=== PATIENT | female | born 1960 | race Caucasian/White ===

== ENCOUNTER 2019-01-16 00:29 | Outpatient (CLI) | payer BC, SELFPAY ==
--- NOTE | 2019-01-16 13:05 | DI.MAMMO_ITS ---
SYMPTOM/DIAGNOSIS: SCREENING, Z12.31, S/P BILAT BREAST AUGMENTATION MAMMOGRAMS: Mammograms were interpreted according to the usual protocol including computer analysis with CAD system, tomosynthesis and C view imaging. Comparison is made with prior examinations. Patient has bilateral breast implants which appear stable. Breast density, Category C. No suspicious microcalcifications are seen. There is a question of a new asymmetric density in the upper inner quadrant of the left breast. Spot compression views are requested. Ultrasound may be indicated at that time. IMPRESSION: Additional views of the left breast as described above, Category 0. MQSA ASSESSMENT OF FINDINGS: Incomplete: Needs additional imaging evaluation. Category 0. Patient will receive a letter notifying them of these results. Bi-RADS category C. The breasts are heterogeneously dense, which may obscure small masses.
== END 2019-01-16 00:49 ==
PROVIDERS: PCP Legal Medicine; Visit Provider Legal Medicine
DX: Z12.31 Encounter for screening mammogram for malignant neoplasm of breast (principal); R92.8 Other abnormal and inconclusive findings on diagnostic imaging of breast; Z98.82 Breast implant status
CPT/HCPCS: 77063; 77067

== ENCOUNTER 2019-01-23 01:12 | Outpatient (CLI) | payer BC, SELFPAY ==
--- NOTE | 2019-01-23 14:30 | DI.COMBO_ITS ---
SYMPTOMS/DIAGNOSIS: F/U ABNORMAL MAMMO, ? NEW AREA OF ASYMMETRIC DENSITY, UPPER INNER QUADRANT, LEFT BREAST ADDITIONAL MAMMOGRAPHIC VIEWS, LEFT BREAST, AND LEFT BREAST ULTRASOUND: Additional images are interpreted according to the usual protocol including tomosynthesis and 2D imaging. Additional mammographic views of the left breast and a left breast ultrasound were interpreted in conjunction. These examinations were obtained to evaluate a questionable area of asymmetric density of the left breast seen on recent mammogram. Additional mammographic views fail to show a definite mass, but there is some persistent asymmetry of radiodensity at this site. Breast ultrasound shows no evidence of a mass or cyst. CONCLUSION: No specific evidence of malignancy at this time. Follow-up unilateral left breast mammogram recommended in six months. Category 3, breast density category B. MQSA ASSESSMENT OF FINDINGS: Probably benign. Six month follow-up recommended. Category 3. Patient will receive a letter notifying them of these results. BI-RADS category B. There are scattered areas of fibroglandular density.
== END 2019-01-23 01:32 ==
PROVIDERS: PCP Legal Medicine; Visit Provider Legal Medicine
DX: Z12.31 Encounter for screening mammogram for malignant neoplasm of breast (principal); R92.8 Other abnormal and inconclusive findings on diagnostic imaging of breast; N60.82 Other benign mammary dysplasias of left breast
CPT/HCPCS: 76642; 77063; 77067

== ENCOUNTER 2019-07-24 01:25 | Outpatient (CLI) | payer BC, SELFPAY ==
--- NOTE | 2019-07-24 14:50 | DI.MAMMO_ITS ---
EXAM: MG MAMMO DIAGNOSTIC UNI CLINICAL HISTORY: DIAGNOSTIC, ABNL MAMMO, 6 MO F/U COMPARISON: 2009 through January,. FINDINGS: This is a 6-month followup for questioned area of asymmetric density. Implant-displaced CC and MLO v iews were performed. The breast is composed of heterogeneously dense fibroglandular tissue, breast d ensity category C. The previously questioned area of nodularity is not seen on the current exam. No new masses or suspicious microcalcifications are seen. IMPRESSION: Category 1, negative mammogram. Bilateral screening to be resumed in 6 months. BI-RADS Cat 1 - Negative Breast Density - Category C - Heterogeneously dense
== END 2019-07-24 01:45 ==
PROVIDERS: PCP Legal Medicine; Visit Provider Legal Medicine
DX: Z12.31 Encounter for screening mammogram for malignant neoplasm of breast (principal); R92.8 Other abnormal and inconclusive findings on diagnostic imaging of breast; N64.59 Other signs and symptoms in breast
CPT/HCPCS: 77061; 77065; G0279

== ENCOUNTER 2020-08-13 01:30 | Outpatient (CLI) | payer BC, SELFPAY ==
--- NOTE | 2020-08-13 12:30 | DI.MAMMO_ITS ---
EXAM: MG MAMMO SCREENING 60 MIN DUR CLINICAL HISTORY: SCREENING, Z12.31, IMPLANTS. TECHNIQUE: Bilateral full field digital CC and MLO mammographic images with and without implant disp lacement were obtained with 3D tomosynthesis and utilizing computer aided detection (CAD). COMPARISON: 2010 through 2018 FINDINGS: Bilateral full field digital CC and MLO mammographic images with and without implant displacement wer e obtained with 3D tomosynthesis and utilizing computer aided detection (CAD). Masses/Architectural Distortion: None seen. Microcalcifications: No suspicious pleomorphic-type microcalcifications are seen. Skin thickening/Nipple Retraction: None. Implants: There are bilateral saline implants which appear intact. Impression: 1. No significant interval change with no specific features of malignancy noted. 2. Unless there is more urgent need, screening mammography is recommended, as per [employer] guidelines. BI-RADS Category 1 - Negative Breast Density - Category C - Heterogeneously dense A negative radiographic report should not delay biopsy if a dominant or clinically suspicious mass is present. Up to ten percent of cancers are not identified on mammography. A negative report may reinforce clinical impression. Adenosis and dense breasts may obscure an underlying neoplasm. False positive reports average 6 to 10%. Patient will receive a letter notifying them of these results.
== END 2020-08-13 01:50 ==
PROVIDERS: PCP Legal Medicine; Visit Provider Legal Medicine
DX: Z12.31 Encounter for screening mammogram for malignant neoplasm of breast (principal); Z98.82 Breast implant status
CPT/HCPCS: 77063; 77067

== ENCOUNTER 2020-09-02 14:42 | Outpatient (REF) | payer BC, SELFPAY ==
--- NOTE | 2020-09-02 13:40 | CER_PTH ---
PATIENT: Dario Liu LOC: [facility] U#:[id number] AGE/SX: 59/F ROOM: RE09/02/[address]: Anastasia Dwyer DO : 1960 BED: DIS: 09/02/2020 SPEC #: [id number] RECD: 09/02/20 17:39 STATUS: ALEXSANDRA REQ #: [id number] MOSES: 09/02/20 13:[address]: Anastasia Dwyer DEPT: Surgical Specimen RECD BY: Sally Colvin ENTERED: 09/02/20 17:40 SP TYPE: CER OTHR DR: Britni Ortega Tissues: 1 - CERVICAL BIOPSY 2 - ENDOCERVICAL BX/CURRETTE Procedures: GROSS AND MICRO LEVEL 4 Comments: [id number]
== END 2020-09-02 15:02 ==
LOC: LBN 14:42
PROVIDERS: PCP Legal Medicine; Visit Provider Obstetrics & Gynecology
DX: N88.8 Other specified noninflammatory disorders of cervix uteri (principal); R87.611 Atypical squamous cells cannot exclude high grade squamous intraepithelial lesion on cytologic smear of cervix (ASC-H)
CPT/HCPCS: 88305

== ENCOUNTER 2022-09-29 04:04 | Outpatient (CLI) | payer BC, SELFPAY ==
[2022-09-29] MEDS: Inhaler, Assist Device 1 EACH MC (14:10)
[2022-09-29] MEDS: Albuterol HFA 18 GM 200 PUFF INH IH (14:10)
--- NOTE | 2022-09-29 16:11 | W.PFT ---
Date of service: 09/29/22 Time of Service: 12:52 Pulmonary Function Test Result Requesting Provider Rocio Lopez Indications: COPD Interpretation Spirometry: There is no airflow limitation. There is no significant bronchodilator response. Lung Volumes: Normal lung volumes Diffusion Capacity: Normal diffusion Airway Pressure: Normal airways resistance Impression Normal pulmonary function testing Clinical Correlation therefore is recommended.
== END 2022-09-29 04:05 | disposition home or self-care (01) ==
LOC: RT 04:04
PROVIDERS: PCP Legal Medicine; Visit Provider Family Medicine
DX: J44.9 Chronic obstructive pulmonary disease, unspecified (principal)
CPT/HCPCS: 94060; 94726; 94729

== ENCOUNTER 2022-10-16 00:11 | Outpatient (CLI) | payer BC, SELFPAY ==
--- NOTE | 2022-10-16 | DI.DEXA_ITS ---
Exam(s) XR DEXA BONE DENSITY W/WO SABINO EXAM: XR DEXA BONE DENSITY W/WO SABINO CLINICAL HISTORY: SCREENING FOR OSTEOPOROSIS,Z78.0 TECHNIQUE: COMPARISON: No exams were available for comparison FINDINGS: Lateral Spine Image: Unremarkable. No compression deformities identified. Left hip: Total T-Score: -1.0 Total Z-Score: -0.1 T- and Z-scores: Within normal limits. Lumbar Spine: Total T-Score: -1.2 Total Z-Score: 0.2 T- and Z-scores: Findings are consistent with osteopenia. IMPRESSION: No evidence of osteoporosis.
--- NOTE | 2022-10-16 | DI.CTLCSR_ITS ---
Exam(s) CT CHEST LUNG CANCER SCREEN EXAM: CT CHEST LUNG CANCER SCREEN CLINICAL HISTORY: SCREENING FOR LUNG CA, SMOKER, Z72.0 TECHNIQUE: Imaging Protocol: Axial computed tomography images with coronal and sagittal reformatted images were created and reviewed COMPARISON: No exams were available for comparison FINDINGS: Tracheobronchial tree: Patent where visualized. Pulmonary parenchyma: No consolidation or dominant measurable mass. Mild centrilobular emphysematous changes are present. Lung Nodules: 2 noncalcified pulmonary nodules are seen the largest measures 3 mm and is located in t he left upper lobe. The 2nd is in the right upper lobe and measures 2 mm. Mediastinum and [place]: No dominant adenopathy or fluid collection. The esophagus is unremarkable. Thyroid gland: Unremarkable. Lymph nodes: Unremarkable. Pleura: No effusion or pneumothorax. Heart: The heart is not dilated. No coronary artery calcifications are seen. No pericardial effusion . Aorta: Thoracic aorta non-dilated.Mild atherosclerosis. Upper abdomen: Gallstones are present. Soft Tissues: The patient has bilateral breast implants. Bones: Within normal limits. IMPRESSION: Two noncalcified pulmonary nodules. The largest measures 3 mm. Lung RADS Cat 2 - Benign Appearance / Behavior: Nodules with a very low likelihood of becoming a clin ically active cancer due to size or lack of growth Lung-RADS 1.0 CATEGORIES: Category 0 - Prior chest CT exam(s) being located for comparison. Category 1 - Annual screening in 12 months. No nodules or definitely benign nodules. Category 2 - Annual screening in 12 months. Benign appearance. Nodules with low likelihood of becomin g active cancer. Category 3 - 6-month follow-up. Probably benign. Short-term follow-up suggested. Nodules with low lik elihood of becoming active cancer. Category 4A - 3-month follow-up and CT/PET if >8 mm in size. Suspicious finding. Findings which requi re additional testing. Category 4B - Findings which require additional testing and tissue sampling. Suspicious finding. Category 4X - Category 3 or 4 nodules with additional features or imaging findings that increases the suspicion of malignancy. Modifier S- Potentially clinically significant finding. (Non lung cancer) RADIATION DOSE DELIVERED: 71.44mGy.cm Total DLP 71.44mGy.cmTotal DLP DATA REPOSITORY: All CT scans at this facility are submitted to the National Radiology Data Registry (NRDR) Dose Index Registry (DIR) with the [employer] ([employer]). RADIATION OPTIMIZATION: All CT scans at this facility use at least one of these dose optimization te chniques: automated exposure control; mA and/or kV adjustment per patient size (includes targeted exa ms where dose is matched to clinical indication); or iterative reconstruction.
--- NOTE | 2022-10-16 | DI.MAMMO_ITS ---
Exam(s) MG MAMMO SCREENING 60 MIN DUR EXAM: MG MAMMO SCREENING 60 MIN DUR CLINICAL HISTORY: SCREENING, Z12.31, IMPLANTS TECHNIQUE: Bilateral full field digital CC and MLO mammographic images were obtained with 3D tomosyn thesis and utilizing computer aided detection (CAD). COMPARISON: Available for comparison. FINDINGS: Masses/Architectural Distortion: There is a new round asymmetric density in the medial left breast 3. 6 cm from the nipple. Microcalcifications: No suspicious pleomorphic-type are seen. Skin Thickening/Nipple Retraction: None. The patient has bilateral breast implants. IMPRESSION: 1. New round asymmetric density in the medial left breast. This is best appreciated on the displaced left CC view. 2. This area should be further evaluated with a spot compression view. Ultrasound may also be indica fazal at that time. BI-RADS Category 0 - Assessment Incomplete: Need additional imaging evaluation Breast Density - Category B - Scattered areas of fibroglandular density Breast density category C or D implies that the patient has dense breast tissue. Dense breast tissue is very common and is not abnormal but dense breast tissue can make it harder to find cancer on a ma mmogram. Also, dense breast tissue may increase their breast cancer risk. This information about the result of the mammogram report was provided to the patient to raise their awareness. Use this report when you speak with the patient about their risks for breast cancer, which includes their family hist ory. At that time, you may recommend for more screening tests (Ultrasound or MRI) as they might be us eful based on their risk. A negative radiographic report should not delay biopsy if a dominant or clinically suspicious mass is present. Up to ten percent of cancers are not identified on mammography. A negative report may reinforce clinical impression. Adenosis and dense breasts may obscure an underlying neoplasm. False positive reports average 6 to 10%. Patient will receive a letter notifying them of these results.
== END 2022-10-16 00:31 ==
LOC: DI 00:12
PROVIDERS: PCP Legal Medicine; Visit Provider Family Medicine
DX: Z13.21 Encounter for screening for nutritional disorder (principal); Z12.2 Encounter for screening for malignant neoplasm of respiratory organs; J43.2 Centrilobular emphysema; Z98.82 Breast implant status; R92.8 Other abnormal and inconclusive findings on diagnostic imaging of breast; F17.210 Nicotine dependence, cigarettes, uncomplicated; R91.8 Other nonspecific abnormal finding of lung field; M85.88 Other specified disorders of bone density and structure, other site; Z78.0 Asymptomatic menopausal state
CPT/HCPCS: 71271; 77063; 77067; 77080

== ENCOUNTER 2022-10-28 02:33 | Outpatient (CLI) | payer BC, SELFPAY ==
--- NOTE | 2022-10-28 | DI.US_ITS ---
Exam(s) MG MAMMO SCREEN CALL BACK UNI US BREAST LT LIMITED EXAM: MG MAMMO SCREEN CALL BACK UNI and U/S breast LT limited CLINICAL HISTORY: ASYMMETRIC DENSITY LEFT BREAST, ABNL MAMMO R92.8. TECHNIQUE: Craniocaudal and mediolateral oblique Full Field Digital Mammography views of the left br east with Computer Aided Diagnosis followed by Tomosynthesis and left breast ultrasound. COMPARISON: Comparison is made with prior examinations. FINDINGS: Mammography/Tomosynthesis: Masses/Architectural Distortion: The area of concern is less prominent on the current examination. N o nodule persists. There are no areas of architectural distortion. Microcalcifictions: No suspicious pleomorphic-type are seen. Skin Thickening/Nipple Retraction: None. Limited left breast US: Echotexture: Normal appearance of the glandular tissue. Shadowing: No suspicious foci. Cyst: None. Solid lesions: None seen. The patient has a left breast implant. Ductal dilation: None. IMPRESSION: 1. No evidence of malignancy is noted. 2. Unless there is more urgent need, follow-up screening mammography is recommended, as per [employer] guidelines. 3. The findings were discussed with the patient on the date of the examination. BI-RADS Category 1 - Negative Breast Density - Category B - Scattered areas of fibroglandular density Breast density Category C or D implies that the patient has dense breast tissue. Dense breast tissue can make it harder to find cancer on a mammogram. Dense breast tissue is also associated with an incr eased risk of breast cancer. This information about the result of the mammogram report was provided to the patient to raise their awareness. Use this report when you speak with the patient about their risks for breast cancer, which includes their family history. At that time, you may recommend additional screening tests (Ultrasoun d or MRI) as these tests may add significant information. A negative radiographic report should not delay biopsy if a dominant or clinically suspicious mass is present. Up to ten percent of cancers are not identified on mammography. A negative report may reinforce clinical impression. Adenosis and dense breasts may obscure an underlying neoplasm. False positive reports average 6 to 10%. Patient will receive a letter notifying them of these results.
== END 2022-10-28 02:53 ==
LOC: DI 02:34
PROVIDERS: PCP Legal Medicine; Visit Provider Family Medicine
DX: Z12.31 Encounter for screening mammogram for malignant neoplasm of breast (principal)
CPT/HCPCS: 76642; 77063; 77067